=== PATIENT | female | born 1950 | race Caucasian/White ===

== ENCOUNTER → 2017-11-20 | Outpatient (CLI) | payer OTHER, MEDICARE | LOC: BHFA 10:45 | PROVIDERS: ATTEND Internal Medicine Cardiovascular Disease | DX: R01.1 Cardiac murmur, unspecified (principal) ==

== ENCOUNTER → 2017-12-04 | Outpatient (CLI) | payer OTHER, MEDICARE ==
[~2017-12-04] MED LIST: GADOBUTROL 10 ML VIAL IVP ONE; IOPAMIDOL (ISOVUE-300) 100 ML BTL ONE
== END ==
LOC: FIMAGING 11:48
PROVIDERS: ATTEND Internal Medicine Infectious Disease
DX: R63.4 Abnormal weight loss (principal); R59.9 Enlarged lymph nodes, unspecified; R47.89 Other speech disturbances; L29.9 Pruritus, unspecified; K76.9 Liver disease, unspecified; I70.90 Unspecified atherosclerosis; Z87.891 Personal history of nicotine dependence
CPT/HCPCS: 70553; 71260; 74177; A9585; Q9967

== ENCOUNTER → 2018-05-12 | Outpatient (CLI) | payer OTHER, MEDICARE ==
[~2018-05-12] MED LIST changes: -GADOBUTROL 10 ML VIAL IVP ONE
== END ==
LOC: FIMAGING 09:10
PROVIDERS: ATTEND Allergy & Immunology Allergy
DX: R59.0 Localized enlarged lymph nodes (principal); R16.0 Hepatomegaly, not elsewhere classified; K76.0 Fatty (change of) liver, not elsewhere classified
CPT/HCPCS: 71260; 74177; Q9967; 82565-PO

== ENCOUNTER → 2018-09-14 | Outpatient (CLI) | payer OTHER, MEDICARE ==
[~2018-09-14] MED LIST changes: +IOPAMIDOL (ISOVUE 370) 100 ML BTL IV ONE; -IOPAMIDOL (ISOVUE-300) 100 ML BTL ONE
== END ==
LOC: FIMAGING 13:23
PROVIDERS: ATTEND Allergy & Immunology Allergy
DX: I25.10 Atherosclerotic heart disease of native coronary artery without angina pectoris (principal); I34.2 Nonrheumatic mitral (valve) stenosis; R59.0 Localized enlarged lymph nodes
CPT/HCPCS: 71275; Q9967; 82164-90; 83520-90; 86225-90; 86235-90